=== PATIENT | female | born 1985 | race Caucasian/White ===

== ENCOUNTER 2017-10-07 21:27 | Emergency (ER) | payer OTHER ==
--- NOTE | 2017-10-07 22:45 | EDM.PDOC ---
ED HPI GENERAL MEDICAL PROBLEM - General Chief Complaint: Lower Extremity Injury/Pain Stated Complaint: [id number] FELL HURT HER LEG Time Seen by Provider: 10/07/17 22:37 Source of Information: Reports: Patient History Limitations: Reports: No Limitations - History of Present Illness INITIAL COMMENTS - FREE TEXT/NARRATIVE: ED with c/o left lower lateral leg and foot pain after falling on stairs of house. patient reported falling nad trying to portect back as recent surgery for herniated disc, fell with most weight on left leg. Pain less than after initial fall. Denied injury to back. Onset: Today Left Lower Leg Pain Score (Numeric/FACES): 7 - Related Data Allergies Allergy/AdvReac Type Severity Reaction Status Date / Time latex Allergy Blisters Verified 10/07/17 21:45 Home Meds: Home Meds . [No Known Home Meds] 10/07/17 [History] Past Medical History HEENT History: Reports: Impaired Vision - Past Surgical History Musculoskeletal Surgical History: Reports: Other (See Below) Other Musculoskeletal Surgeries/Procedures:: Back surgery 05/22/17 Social & Family History - Tobacco Use Smoking Status *Q: Never Smoker - Caffeine Use Caffeine Use: Reports: Coffee - Recreational Drug Use Recreational Drug Use: No Review of Systems - Review of Systems Review Of Systems: ROS reveals no pertinent complaints other than HPI. ED EXAM, GENERAL - Physical Exam Exam: See Below Exam Limited By: No Limitations General Appearance: Alert, No Apparent Distress Ears: Normal External Exam Nose: Normal Inspection Throat/Mouth: Normal Inspection Head: Atraumatic, Normocephalic Neck: Normal Inspection Respiratory/Chest: No Respiratory Distress, Normal Breath Sounds Cardiovascular: Normal Peripheral Pulses, Regular Rate, Rhythm Back Exam: Full Range of Motion Extremities: Normal Range of Motion, Leg Pain (mild tenderness lower left lateral leg and ankle , no deformity, no swelling. increased pain with flexion. ). No: Joint Swelling Neurological: Alert, Oriented, Normal Cognition Skin Exam: Warm, Dry, Intact, Normal Color Course - Vital Signs Last Recorded V/S: Last Vital Signs Temp 98.9 F 10/07/17 21:40 Pulse 84 10/07/17 21:40 Resp 18 10/07/17 21:40 BP 146/89 H 10/07/17 21:40 Pulse Ox 99 10/07/17 21:40 - Radiology Interpretation Free Text/Narrative:: xray left tibia, fibula and foot: normal Departure - Departure Time of Disposition: 22:47 Disposition: Home, Self-Care 01 Condition: Good Clinical Impression: Left leg pain - Discharge Information Instructions: Muscle Strain, Eran-cl-[id number] Forms: ED Department Discharge Additional Instructions: rest light activity recheck one week if continued pain, sooner if symptoms worsen tylenol or ibuprofen for discomfort
== END 2017-10-07 23:03 | disposition home or self-care (01) ==
LOC: DL.ED 21:27
DX: M79.605 Pain in left leg (principal); Z91.040 Latex allergy status
CPT/HCPCS: 73590-LT; 73630-LT; 99283